=== PATIENT | male | born 1955 | race Caucasian/White ===

== ENCOUNTER 2017-08-12 08:55 | Emergency (ER) | payer OTHER ==
[~2017-08-12] VITALS: Ht 162.6 cm; Wt 94.0 kg
[2017-08-12 08:57] VITALS: Ht 162.6 cm; Wt 94.0 kg
[2017-08-12] MEDS ORDERED: IBUP-1542 PO (10:37)
[2017-08-12] MEDS ORDERED: NPH10OT RIGHT EAR (10:37)
[2017-08-12] MEDS ORDERED: AMOX500C2 PO (10:37)
--- NOTE | 2017-08-12 10:47 | ERD ---
ER Documentation Chief Complaint Chief Complaint pt bib with c/o right ear pain since last Monday HPI This is a 62-year-old male presents to the ER with right ear pain since last Monday. Patient states that ear pain is intermittent and has actually gotten better, however it is still bothering him. He states that pain is sharp in quality. It is nonradiating. He does not have any discharge from his ear. He has not had any recent cough or cold symptoms. ROS 12 point review of systems was done, all negative except per HPI. Medications Home Meds Active Scripts Ibuprofen* (Motrin*) 600 Mg Tab, 600 MG PO Q6, #30 TAB Prov:DONALD PINEDA 08/12/17 Neomycin/Polymyxin/Hydrocort* (Cortisporin* Otic) 10 Ml Susp, 4 DROP RIGHT EAR QID for 7 Days, EA Prov:DONALD PINEDA Christal 08/12/17 Amoxicillin* (Amoxicillin*) 500 Mg Cap, 500 MG PO TID for 10 Days, CAP Prov:DONALD PINEDA Christal 08/12/17 Allergies Allergies: Coded Allergies: No Known Allergy (Unverified , 08/12/17) PMhx/Soc Medical and Surgical Hx: pt denies Medical Hx, pt denies Surgical Hx Hx Alcohol Use: No Hx Substance Use: No Hx Tobacco Use: No Physical Exam Vitals Vital Signs Date Time Temp Pulse Resp B/P Pulse Ox O2 Delivery O2 Flow Rate FiO2 08/12/17 08:57 98.3 78 18 132/74 98 Physical Exam GENERAL: The patient is well-developed, well-nourished, in no acute distress. NECK: Cervical spine is non tender with no step off. Supple, no nuchal rigidity HEENT: Atraumatic. Pupils equal, round and reactive to light. Extraocular muscles are grossly intact. Conjunctivae pink, no discharge. Erythematous tympanic membrane, with some mild erythema of the ear canal, mild tragus tenderness.. Tonsilar erythema with no exudates or uvular deviation. Clear rhinorrhea. RESPIRATORY: Clear to auscultation bilaterally. There are no rales, wheezes or rhonchi. HEART: Regular rate and rhythm. No murmurs, clicks, rubs or gallops. EXTREMITIES: No clubbing or cyanosis. Full range of motion. Grossly neurovascularly intact. NEUROLOGIC: Alert and oriented. Cranial nerves II through XII are intact. SKIN: There is no rash. The skin is warm and dry. Procedures/MDM This is a 62-year-old male presents to the ER with right ear pain. Patient does appear to have otitis media and possible otitis externa as he does have some erythema of the canal and some tragus tenderness. Patient was sent home with amoxicillin and with Cortisporin. Mastoiditis is low, he does not have any mastoid tenderness. Patient is stable for outpatient follow-up. He is afebrile and extremely well-appearing. He is to follow-up with his primary care doctor within 1-2 days return to ER sooner if symptoms worsen. My medical decision making shared with the patient he understands and agrees with plan. Departure Diagnosis: Primary Impression: Otitis media Condition: Stable Patient Instructions: Otitis Media, Abx Tx (Adult) Additional Instructions: Call your primary care doctor TOMORROW for an appointment during the next 1-2 days.See the doctor sooner or return here if your condition worsens before your appointment time. DONALD PINEDA Aug 12, 2017 10:47
== END 2017-08-12 11:22 | disposition home or self-care (01) ==
LOC: FTE 08:55
DX: H66.91 Otitis media, unspecified, right ear (principal)
CPT/HCPCS: 99283